=== PATIENT | female | born 1935 | race Caucasian/White ===

== ENCOUNTER 2017-03-19 11:38 | Day surgery (SDC) | payer MEDICARE, OTHER ==
[~2017-03-19] VITALS: Ht 162.6 cm; Wt 56.8 kg
[2017-03-19] MEDS ORDERED: LISI10TA2 PO (12:17)
[2017-03-19] MEDS ORDERED: ASPI-664 PO (12:17)
[2017-03-19] MEDS ORDERED: WARF4TAB52 PO (12:17)
[2017-03-19] MEDS ORDERED: DIGO125T19 PO (12:17)
[2017-03-19] MEDS ORDERED: CARV25TA79 PO (12:17)
[2017-03-19] MEDS ORDERED: FURO40SO PO (12:17)
[2017-03-19] MEDS ORDERED: ANAS1TAB PO (12:17)
[2017-03-19] MEDS ORDERED: PANT40TA4 PO (12:17)
[2017-03-19 12:26] VITALS: Ht 162.6 cm; Wt 56.8 kg
[2017-03-19] MEDS ORDERED: MIDAZOLAM 1 MG/ML 2 ML INJ ONE (13:12)
[2017-03-19] MEDS ORDERED: ETOMIDATE 20 MG INJ ONE (13:12)
[2017-03-19] MEDS ORDERED: FENTAnyl 50 MCG/ML VIAL ONE (13:12)
[2017-03-19 13:54] VITALS: BP 145/67; PULSE 75; RESP 15
[2017-03-19 15:15] VITALS: BP 137/63; RESP 70
--- NOTE | 2017-03-19 15:43 | OPPN ---
Date/Time of Note Date/Time of Note DATE: 03/19/17 TIME: 15:39 Proc Note GI Free Text/Dictation Preoperative Diagnosis: Anemia/occult blood positive stool Postoperative Diagnosis: * Moderate gastritis. Rule out H follow infection. Biopsies obtained * Otherwise normal EGD Plan: * Continue PPI therapy * Review pathology Procedure Performed: EGD with biopsies Surgeon: Shawn Curran MD Information Technology Consultant: None Second Environmental Services Specialist: None Anesthesia/Sedation: Monitored anesthesia care/with Dr. Edmonds Tourniquet Time: NA Estimated Blood Loss: Anemia/occult blood positive straight Transfusion Required: No Specimens: Gastric antrum and body Grafts/Implants: None Tubes/Drains: NA Complications: None Pt. Condition Post Procedure: Stable Disposition: Home After informed consent, with the patient/relatives understanding the procedure, its indications, potential risks and complications, including but not limited to : allergic reaction, bleeding, perforation or infection, and after all pertinent questions were answered to the patients satisfaction, the patient/ relatives signed witnessed informed consent. Following this, premedication was administered slowly IV push under careful cardiovascular and respiratory monitoring with pulse oximetry, automatic blood pressure, and sales receptionist. Once the sedative effect was achieved the patient was place in the left lateral decubitus, the panendoscope was introduced and advanced under visual control. Careful examination of the upper gastrointestinal tract, both on insertion as well as withdrawal of the instrument disclosing the following findings: Esophagus: the mucosa of the entire esophagus was carefully examined and showed the following findings: [the mucosa appears within normal limits. There is no evidence of esophagitis, varices, neoplasm, or stricture. No Hiatal Hernia identified.] Stomach: Upon entrance to the stomach air was insufflated, the gastric wood distended normally. The mucosa of the fundus, body and antrum of the stomach was carefully examined both head-on and on retroflexion, and showed the following findings: There is moderate erythema and edema of the mucosa of the antrum. Biopsies were obtained to rule out H. pylori infection. Otherwise the mucosa appears within normal limits with no abnormalities. There is no evidence of ulcers or neoplasm.] Pylorus: The pylorus was carefully examined and showed the following findings: [ the pylorus appears patent and within normal limits, with no evidence of gastric outlet obstruction.] Duodenum: The duodenal mucosa was carefully examined in the duodenal bulb as well as the second portion of the duodenum and showed the following findings: [ the mucosa appears unremarkable with no evidence of duodenitis, ulcer or neoplasm.] Procedure date: Mar 19, 2017 SHAWN CURRAN MD Mar 19, 2017 15:43
--- NOTE | 2017-03-19 15:47 | OPPN ---
Date/Time of Note Date/Time of Note DATE: 03/19/17 TIME: 15:43 Proc Note GI Free Text/Dictation Procedure Date: 03/19/2017 Preoperative Diagnosis: Anemia/occult blood positive stool Postoperative Diagnosis: * 5 mm sessile polyp rectum. Ablated * Moderate-sized internal hemorrhoids * Otherwise normal colonoscopy to cecum Plan: * Review pathology as soon as available * High-fiber diet * Annual Hemoccult stool testing * Surveillance colonoscopy in 5 years Procedure Performed: Colonoscopy Surgeon: Shawn Curran MD Bar Supervisor: None Second Cogeneration Operator: None Anesthesia/Sedation monitored anesthesia care/Dr. Edmonds Tourniquet Time: NA Estimated Blood Loss: None Transfusion Required: No Specimens: Rectal polyp Grafts/Implants: None Tubes/Drains: NA Complications: None Pt. Condition Post Procedure: Stable Disposition: Home After informed consent, with the patient/relatives understanding the procedure, its indications and potential risks and complications, including but not limited to: Allergic reaction, bleeding, perforation, infection, and after all pertinent questions were answered to the patient's satisfaction, the patient/ relatives signed the witnessed informed consent. Following this, premedication was administered slowly IV push under careful cardiovascular and respiratory monitoring with pulse O[employer], automatic blood pressure, and weight clerk. Once the sedative effect was achieved, the patient was placed in the left lateral decubitus position, digital rectal examination was performed. A colonoscope was then introduced and advanced under visual control throughout all segments of the colon including: [the rectum, sigmoid, descending colon, splenic flexure, transverse colon, hepatic flexure, ascending colon and finally reaching the cecum which was clearly identified by transillumination, finger indentation and the ileocecal valve.] Careful examination of the mucosa of the lower gastrointestinal tract both on insertion as well as withdrawal of the instrument disclosed the following findings: Preparation quality: [Adequate], Rectal Examination: The anorectal area was visualized examined and digital rectal examination performed with the following findings: [No evidence of perirectal disease, no masses.] Colonic mucosa: The mucosa of all segments of the colon was carefully examined and showed the following findings: [There is a 5 mm sessile polyp in the rectum. Ablated with biopsy forceps. Otherwise the examined mucosa appears within normal limits. There is no evidence of inflammatory changes, diverticular formation, other neoplasms, vascular malformation, or any other abnormality.] The instrument was then withdrawn, the patient tolerated the procedure well and was transferred out of the Endoscopy Suite awake and in good condition to continue recovery under observation. Procedure date: Mar 19, 2017 SHAWN CURRAN MD Mar 19, 2017 15:47
== END 2017-03-19 16:41 | disposition home or self-care (01) ==
LOC: GIL 11:38
PROVIDERS: ATTEND Internal Medicine Gastroenterology
DX: K92.1 Melena (principal); K62.1 Rectal polyp; K29.70 Gastritis, unspecified, without bleeding; K64.8 Other hemorrhoids; E78.5 Hyperlipidemia, unspecified; I10 Essential (primary) hypertension; Z95.1 Presence of aortocoronary bypass graft; Z85.3 Personal history of malignant neoplasm of breast
CPT/HCPCS: 43239; 45380; 88305; 88312; J2250; J3010